=== PATIENT | male | born 1995 | race Caucasian/White ===

== ENCOUNTER 2017-09-05 09:01 | Emergency (ER) | payer OTHER ==
[~2017-09-05] VITALS: Ht 172.7 cm; Wt 54.0 kg
== END 2017-09-05 13:03 | disposition home or self-care (01) ==
LOC: ER 09:01
DX: B34.9 Viral infection, unspecified (principal)

== ENCOUNTER 2019-09-25 13:35 | Emergency (ER) | payer OTHER ==
[~2019-09-25] VITALS: Ht 172.7 cm; Wt 51.3 kg
== END 2019-09-25 22:26 | disposition home or self-care (01) ==
LOC: ER 13:35
DX: A08.8 Other specified intestinal infections (principal); K29.00 Acute gastritis without bleeding

== ENCOUNTER 2021-09-01 08:24 | Emergency (ER) | payer OTHER ==
[~2021-09-01] VITALS: Ht 172.7 cm; Wt 55.8 kg
== END 2021-09-01 13:28 | disposition home or self-care (01) ==
LOC: ER 08:24
DX: N39.0 Urinary tract infection, site not specified (principal)